=== PATIENT | male | born 1980 | race Caucasian/White ===

== ENCOUNTER 2017-03-09 09:26 | Emergency (ER) | payer OTHER ==
[~2017-03-09] VITALS: Ht 175.3 cm; Wt 147.7 kg
[~2017-03-09 09:26] MED LIST: ALBUTEROL17 GM INH; AMOXIL875 MG PO; CLEOCIN HCL300 M1 PO; DIFLUCAN200 MG PO; DOXYCYCLINE PO; FAMOTIDINE PO; FLEXERIL PO; HYDROCODON-ACE1 EAC9 PO; HYDROCODONE-GU480 ML PO; IBUPROFEN PO; IMITREX PO; KEFLEX PO; KEFLEX500 MG PO; MOTRIN PO; NAPROSYN500 MG PO; PEPCID PO; PHENERGAN25 MG PO; PREDNISONE PO; PRILOSEC PO; TOPAMAX PO; ULTRAM PO; VALTREX500 MG PO; VISCOUS XYLOCAINE PO; VOLTAREN50 MG PO; ZANAFLEX4 M1 PO; ZITHROMAX PO; ZOFRANODT PO; ZYRTEC PO; [UNRECOGNIZED DRUG - OTHER]
[2017-03-09] MEDS ORDERED: BUPRENORPHIN-N1 EACH (09:31)
[2017-03-09] MEDS ORDERED: CLONIDINE1 EAC1 (09:31)
[2017-03-09] MEDS ORDERED: ZOFRAN2 MG/1 ML (09:31)
[2017-03-09] MEDS ORDERED: SUBOXONE 8 MG-1 EAC1 (09:32)
== END 2017-03-09 10:07 | disposition home or self-care (01) ==
LOC: SED 09:26
DX: L29.9 Pruritus, unspecified (principal); T50.7X5A Adverse effect of analeptics and opioid receptor antagonists, initial encounter; J45.909 Unspecified asthma, uncomplicated; F17.200 Nicotine dependence, unspecified, uncomplicated; Z88.5 Allergy status to narcotic agent; Z88.6 Allergy status to analgesic agent; Z88.8 Allergy status to other drugs, medicaments and biological substances
CPT/HCPCS: 99282

== ENCOUNTER 2017-03-27 15:26 | Emergency (ER) | payer OTHER ==
[~2017-03-27 15:26] MED LIST changes: +BUPRENORPHIN-N1 EACH; +CLONIDINE1 EAC1; +SUBOXONE 8 MG-1 EAC1; +ZOFRAN2 MG/1 ML
== END 2017-03-27 16:01 | disposition home or self-care (01) ==
LOC: SED 15:26
DX: S16.1XXA Strain of muscle, fascia and tendon at neck level, initial encounter (principal); S46.912A Strain of unspecified muscle, fascia and tendon at shoulder and upper arm level, left arm, initial encounter; J45.909 Unspecified asthma, uncomplicated; K21.9 Gastro-esophageal reflux disease without esophagitis; F17.200 Nicotine dependence, unspecified, uncomplicated; X50.9XXA Other and unspecified overexertion or strenuous movements or postures, initial encounter
CPT/HCPCS: 99283

== ENCOUNTER 2017-04-03 22:21 | Emergency (ER) | payer OTHER ==
[~2017-04-03] VITALS: Ht 177.8 cm; Wt 147.4 kg
== END 2017-04-03 23:54 | disposition left against medical advice (07) ==
LOC: SED 22:21
DX: Z53.21 Procedure and treatment not carried out due to patient leaving prior to being seen by health care provider (principal)